=== PATIENT | male | born 1945 | race Caucasian/White ===

== ENCOUNTER → 2024-01-16 08:36 | Outpatient (REF) | payer MEDICARE, SELFPAY ==
[2024-01-16 10:02] LABS: Hematocrit 44.8 % (39.0-52.0); Hemoglobin 15.2 g/dL (13.0-18.0); Mean Corp Hgb Conc. 33.9 g/dL (33.0-37.0); Mean Corpuscular Hgb 31.7 pg (27.0-31.0); Mean Corpuscular Volume 93.5 fL (80.0-94.0); Platelet Count 269 10^3/uL (130-400); Red Blood Cell Count 4.79 10^6/uL (4.70-6.10); Red Cell Dist. Width 13.3 % (11.5-14.5); White Blood Cell Count 5.6 10^3/uL (4.8-10.8)
[2024-01-16 11:05] LABS: Blood Urea Nitrogen 15 mg/dl (9-20); Calcium 10.3 mg/dl (8.4-10.2); Carbon Dioxide 23 mmol/L (22-30); Chloride 107 mmol/L (98-107); Glucose 101 mg/dl (70-99); Potassium 4.5 mmol/L (3.5-5.1); Sodium 138 mmol/L (135-145); eGFR > 60.00
== END ==
LOC: SDSPAT 08:36
PROVIDERS: ATTENDING PHYSICIAN Surgery; FAMILY PHYSICIAN Family Medicine
DX: Z01.818 Encounter for other preprocedural examination (principal)
CPT/HCPCS: 36415; 71046; 80048; 85027; 93005

== ENCOUNTER 2024-01-27 06:10 | Day surgery (SDC) | payer MEDICARE, SELFPAY ==
[2024-01-16 08:56] VITALS: BMI 24.8
[2024-01-27] VITALS (15 sets, daily range): BP systolic 122–153; BP diastolic 69–115; BMI 24.8
[2024-01-27] MEDS: NORMOSOL-R 1000 IV ×2 (08:30→14:25)
[2024-01-27] MEDS: TYLENOL 1000 MG PO (08:41)
--- NOTE | 2024-01-27 13:27 | W.IMMPOSTOP ---
Addendum entered and electronically signed by Landen Schuler MD 02/03/24 15:00:
[facility]# [id number]
Original Note:
Surgical Immed Post Op Note
-
Primary Surgeon: Harini
Assisting Surgeon: GUME Carrasco
Pre-op Diagnosis: Paraesophageal hernia
Post-op Diagnosis: Paraesophageal hernia
Procedure Performed: Laparoscopic paraesophageal hernia repair with Toupet fundoplication and EGD
Anesthesia Type: General
Specimen / Cultures: None
Estimated Blood Loss: 11 cc
Complications: None
Operative Findings:
1. Large type III PEH with 100% of stomach in chest
2. Complete reduction with > 3 cm esophageal mobilization, bl vagi identified
3. Posterior crural closure with 0 silk x4 (3 Pledget), anterior closure with 0 silk x1
4. Loose floppy Toupet fundoplication over [address] Fr Bougie
5. Small RIGHT anterior tear in crura after Bougie reapproximated with 0 silk
6. No pleural violation, small serosal tears in stomach x2 closed with 2-0 silk
7. Post-repair EGD with no narrowing at GEJ, intact wrap, no mucosal ischemia or injury
The assistance of GUME Marie was required due to the complexity of the procedure. During the procedure she assisted with retraction, resection, and closure of the wound.
[2024-01-27] MEDS: OFIRMEV 100 IV ×2 (14:32→20:55)
[2024-01-28] MEDS: NORMOSOL-R 1000 IV ×2 (00:51→08:34)
[2024-01-28] MEDS: OFIRMEV 100 IV ×2 (02:01→08:34)
[2024-01-28 03:00] VITALS: BP 143/78
[2024-01-28 05:21] LABS: Hematocrit 38.8 % (39.0-52.0); Hemoglobin 13.3 g/dL (13.0-18.0); Mean Corp Hgb Conc. 34.3 g/dL (33.0-37.0); Mean Corpuscular Hgb 32.4 pg (27.0-31.0); Mean Corpuscular Volume 94.4 fL (80.0-94.0); Mean Platelet Volume 11.1 fL (7.4-10.4); Platelet Count 229 10^3/uL (130-400); Red Blood Cell Count 4.11 10^6/uL (4.70-6.10); Red Cell Dist. Width 13.1 % (11.5-14.5); White Blood Cell Count 8.4 10^3/uL (4.8-10.8)
[2024-01-28 05:44] LABS: Blood Urea Nitrogen 14 mg/dl (9-20); Calcium 9.2 mg/dl (8.4-10.2); Carbon Dioxide 24 mmol/L (22-30); Chloride 107 mmol/L (98-107); Estimated Creatinine Clearance 85 ml/min; Glucose 87 mg/dl (70-99); Potassium 4.3 mmol/L (3.5-5.1); Sodium 138 mmol/L (135-145); eGFR > 60.00
[2024-01-28 07:05] VITALS: BP 144/78
[2024-01-28 11:00] VITALS: BP 144/75
--- NOTE | 2024-01-28 14:39 | W.PN.GS2 ---
Today's Communication / Plan
-
Adv to FLD
Assessment / Plan
-
78M POD1 s/p lap PEHR
Doping well post op
Adv to FLD
Tentatively for DC home tomorrow on FLD if no issues
DVT ppx
PRN pain meds/anti-emetics
Subjective Data
-
Date of Service: January 28, 2024
AFVSS, ambulating, voiding, passing flatus, pain controlled, denies n/v, amarjit CLD
Objective Data
-
Intake and Output
01/27/24 01/28/24 01/29/24
06:59 06:59 06:59
Intake Total 1500 / 1500
Output Total 1625 / 1625
Balance -125 / -125
Intake:
IV fluids (Total) 1500 / 1500
Normosol 300 / 300
Output:
Urine, Ball 250 / 250
Urine, Voided 1375 / 1375
Vital Signs
Temp Pulse Resp BP Pulse Ox
98.1 F 68 18 144/75 94
01/28/24 11:00 01/28/24 11:00 01/28/24 11:00 01/28/24 11:00 01/28/24 11:00
Lab Results
01/28/24 04:14
01/28/24 04:14
Calcium 9.2 mg/dl (8.4-10.2) 01/28/24 04:14
Physical Exam
-
Gen: NAD
Abd: soft, approp ttp, incisions cdi
[2024-01-28 15:05] VITALS: BP 157/84
[2024-01-28] MEDS: LOVENOX 40 MG SC (17:44)
--- NOTE | 2024-01-28 18:14 | PTCARENOTE ---
pt has a daily BM at home feels full. No n/v. Just mild discomfort. Has not walked a lot today. Did heavily encourage. He wants a bowel regime. suggested prune juice. TT with Dr. Acuña...good with prune juice will reassess in AM
[2024-01-28] MEDS: NORMOSOL-R IV (20:51)
[2024-01-28 23:21] VITALS: BP 146/81
[2024-01-29 06:20] LABS: Hematocrit 39.8 % (39.0-52.0); Mean Corp Hgb Conc. 35.2 g/dL (33.0-37.0); Mean Corpuscular Hgb 32.1 pg (27.0-31.0); Mean Corpuscular Volume 91.3 fL (80.0-94.0); Mean Platelet Volume 10.9 fL (7.4-10.4); Platelet Count 242 10^3/uL (130-400); Red Blood Cell Count 4.36 10^6/uL (4.70-6.10); Red Cell Dist. Width 13.1 % (11.5-14.5); White Blood Cell Count 7.2 10^3/uL (4.8-10.8)
[2024-01-29 06:41] LABS: Blood Urea Nitrogen 7 mg/dl (9-20); Calcium 9.8 mg/dl (8.4-10.2); Carbon Dioxide 27 mmol/L (22-30); Chloride 104 mmol/L (98-107); Estimated Creatinine Clearance 85 ml/min; Glucose 101 mg/dl (70-99); Sodium 137 mmol/L (135-145); eGFR > 60.00
[2024-01-29 07:05] VITALS: BP 119/72
[2024-01-29] MEDS: ZESTRIL 40 MG PO (08:16)
[2024-01-29] MEDS: NORVASC 10 MG PO (08:16)
--- NOTE | 2024-01-29 09:01 | W.PN.GS2 ---
Today's Communication / Plan
-
Dispo planning
Assessment / Plan
-
78M POD 2 s/p lap PEHR
AFVSS
Doing well post op
Adv to soft diet as tolerated
Add PO Tylenol, declines narcotics
Miralax x1 dose given c/o mild constipation
DVT ppx
discharge to home today
Subjective Data
-
Date of Service: January 29, 2024
Patient seen and examined at bedside. Tolerating diet. Denies n/v. Some incisional soreness. Passed a small stool today, but does note a bit of constipation with that.
Objective Data
-
Intake and Output
01/28/24 01/29/24 01/30/24
06:59 06:59 06:59
Intake Total 1500 / 1500 1640 / 1640
Output Total 1625 / 1625 800 / 800
Balance -125 / -125 840 / 840
Intake:
Oral fluids 1440 / 1440
IV fluids (Total) 1500 / 1500
Normosol 300 / 300
IV piggybacks 200 / 200
Output:
Urine, Ball 250 / 250
Urine, Voided 1375 / 1375 800 / 800
Other:
Number of approximated SMALL 2
amounts of urine
Number of approximated MODERATE 4
amounts of urine
Vital Signs
Temp Pulse Resp BP Pulse Ox
97.6 F 83 17 119/72 93
01/29/24 07:05 01/29/24 07:05 01/29/24 07:05 01/29/24 07:05 01/29/24 07:05
Lab Results
01/29/24 05:31
01/29/24 05:31
Calcium 9.8 mg/dl (8.4-10.2) 01/29/24 05:31
Physical Exam
-
Gen: NAD
Abd: soft, approp ttp, incisions cdi
[2024-01-29] MEDS: MIRALAX 17 GRAMS PO (09:50)
--- NOTE | 2024-01-29 10:39 | CM ---
met with patient at bedside.he lives alone in house with 2 isabel,his bed and bath is on the second level,he amb i and is I with his adl.dr thompson is his pp and he uses [facility] pharmacy for his meds.he has never had home care services or been to [facility]
rehab.
patient is adm from home with paraednathalie hrnia.he is now pod#2 sp PEHR.he is voiding,has some constipation,tolerating food,pain is controlled. Plan is dc home with no needs.daughter sole plans to stay with patient for a few days.he will dc
home with no needs.
[2024-01-29 11:36] VITALS: BP 130/80
== END 2024-01-29 12:17 | disposition home or self-care (01) ==
LOC: SDS 06:10
PROVIDERS: ATTENDING PHYSICIAN Surgery
DX: K44.9 Diaphragmatic hernia without obstruction or gangrene (principal)
CPT/HCPCS: 43281; 80048; 85027

== ENCOUNTER → 2024-06-19 07:27 | Outpatient (REF) | payer MEDICARE, SELFPAY | LOC: HWRAD 07:27 | PROVIDERS: ATTENDING PHYSICIAN Family Medicine | DX: R91.1 Solitary pulmonary nodule (principal) | CPT/HCPCS: 71250 ==

== ENCOUNTER → 2024-12-27 13:46 | Outpatient (REF) | payer MEDICARE, SELFPAY | LOC: HWRCS 13:46 | PROVIDERS: ATTENDING PHYSICIAN Family Medicine | DX: R01.1 Cardiac murmur, unspecified (principal) | CPT/HCPCS: 93306 ==

== ENCOUNTER → 2025-05-29 12:46 | Outpatient (REF) | payer MEDICARE, SELFPAY | LOC: HWRAD 12:46 | PROVIDERS: ATTENDING PHYSICIAN Family Medicine | DX: R91.1 Solitary pulmonary nodule (principal) | CPT/HCPCS: 71250 ==